=== PATIENT | male | born 1955 | race Caucasian/White ===

== ENCOUNTER → 2016-10-28 | Outpatient (CLI) | payer MEDICARE, MEDICAID | LOC: BHSO 14:35 | DX: F20.89 Other schizophrenia (principal) | CPT/HCPCS: 90791-AI ==

== ENCOUNTER → 2016-11-12 | Outpatient (CLI) | payer MEDICARE, MEDICAID | LOC: BHSO 09:11 | DX: Z01.89 Encounter for other specified special examinations (principal) ==

== ENCOUNTER → 2016-12-12 | Outpatient (CLI) | payer MEDICARE, MEDICAID | LOC: BHSO 09:59 | DX: F20.9 Schizophrenia, unspecified (principal) ==

== ENCOUNTER → 2017-01-10 | Outpatient (CLI) | payer MEDICARE, MEDICAID | LOC: BHSO 11:14 | DX: F20.9 Schizophrenia, unspecified (principal) ==

== ENCOUNTER → 2017-02-07 | Outpatient (CLI) | payer MEDICARE, MEDICAID | LOC: BHSO 10:53 | DX: F20.9 Schizophrenia, unspecified (principal) ==

== ENCOUNTER → 2017-03-07 | Outpatient (CLI) | payer MEDICARE, MEDICAID | LOC: BHSO 10:00 | DX: F20.9 Schizophrenia, unspecified (principal) ==

== ENCOUNTER → 2017-04-04 | Outpatient (CLI) | payer MEDICARE, MEDICAID | LOC: BHSO 10:01 | DX: Z01.89 Encounter for other specified special examinations (principal) ==

== ENCOUNTER → 2017-04-11 | Outpatient (CLI) | payer MEDICARE, MEDICAID | LOC: BHSO 09:59 | DX: F20.9 Schizophrenia, unspecified (principal) ==

== ENCOUNTER → 2017-05-02 | Outpatient (CLI) | payer MEDICARE, MEDICAID | LOC: BHSO 09:52 | DX: F20.9 Schizophrenia, unspecified (principal) ==

== ENCOUNTER → 2017-05-30 | Outpatient (CLI) | payer MEDICARE, MEDICAID | LOC: BHSO 10:00 | DX: F20.9 Schizophrenia, unspecified (principal) ==

== ENCOUNTER → 2017-06-26 | Outpatient (CLI) | payer MEDICARE, MEDICAID | LOC: BHSO 10:36 | DX: F20.9 Schizophrenia, unspecified (principal) ==

== ENCOUNTER → 2017-07-24 | Outpatient (CLI) | payer MEDICARE, MEDICAID | LOC: BHSO 10:44 | DX: F20.9 Schizophrenia, unspecified (principal) ==

== ENCOUNTER → 2017-08-08 | Outpatient (CLI) | payer MEDICARE, MEDICAID | LOC: BHSO 09:56 | DX: F20.9 Schizophrenia, unspecified (principal) | CPT/HCPCS: G0463 ==

== ENCOUNTER → 2017-08-21 | Outpatient (CLI) | payer MEDICARE, MEDICAID | LOC: BHSO 10:48 | DX: F20.9 Schizophrenia, unspecified (principal) ==

== ENCOUNTER → 2017-09-18 | Outpatient (CLI) | payer MEDICARE, MEDICAID | LOC: BHSO 11:34 | DX: F20.9 Schizophrenia, unspecified (principal) ==

== ENCOUNTER → 2017-10-17 | Outpatient (CLI) | payer MEDICARE, MEDICAID | LOC: BHSO 10:01 | DX: F20.9 Schizophrenia, unspecified (principal) ==

== ENCOUNTER → 2017-11-14 | Outpatient (CLI) | payer MEDICARE, MEDICAID | LOC: BHSO 10:04 | DX: F20.9 Schizophrenia, unspecified (principal) ==

== ENCOUNTER → 2017-12-12 | Outpatient (CLI) | payer MEDICARE, MEDICAID | LOC: BHSO 09:25 | DX: F20.9 Schizophrenia, unspecified (principal) ==

== ENCOUNTER → 2018-01-09 | Outpatient (CLI) | payer MEDICARE, MEDICAID | LOC: BHSO 09:51 | DX: F20.9 Schizophrenia, unspecified (principal) ==

== ENCOUNTER → 2018-02-06 | Outpatient (CLI) | payer MEDICARE, MEDICAID | LOC: BHSO 09:45 | DX: F20.9 Schizophrenia, unspecified (principal) ==

== ENCOUNTER → 2018-03-06 | Outpatient (CLI) | payer MEDICARE, MEDICAID | LOC: BHSO 10:05 | DX: F25.0 Schizoaffective disorder, bipolar type (principal) | CPT/HCPCS: G0463 ==

== ENCOUNTER → 2018-04-03 | Outpatient (CLI) | payer MEDICARE, MEDICAID | LOC: BHSO 10:53 | DX: F20.9 Schizophrenia, unspecified (principal) ==

== ENCOUNTER 2018-04-23 05:21 | Day surgery (SDC) | payer MEDICARE, MEDICAID ==
[~2018-04-23] VITALS: Ht 170.2 cm; Wt 110.0 kg
[2018-04-23] VITALS (14 sets, daily range): BP systolic 117–155; BP diastolic 59–91; PULSE 80–105; TEMP 97.6–98.3
[2018-04-23] MEDS ORDERED: INVEGA SUSTENN117 MG IM (06:03)
[2018-04-23] MEDS ORDERED: PRINZIDE 25 MG-1 TAB PO (06:04)
[2018-04-23] MEDS ORDERED: LIPITOR20 MG PO (06:04)
[2018-04-23] MEDS ORDERED: COGENTIN 1MG1 MG/TAB PO (06:05)
[2018-04-23] MEDS ORDERED: MOBIC15 MG PO (06:05)
[2018-04-23] MEDS ORDERED: BELSOMRA5 MG PO (06:06)
[2018-04-23] MEDS ORDERED: FLOMAX 0.40.4 MG/CAP PO (06:06)
[2018-04-23] MEDS ORDERED: DESYREL DIVIDO150 M1 PO (06:06)
[2018-04-24 03:33] VITALS: BP 121/60; PULSE 75; TEMP 98.3
[2018-04-24 08:36] VITALS: BP 135/68; PULSE 71; TEMP 97.4
[2018-04-24 13:00] VITALS: BP 151/77; PULSE 68; TEMP 97.3
[2018-04-24 15:46] VITALS: BP 146/66; PULSE 73; TEMP 97.5
[2018-04-24 19:51] VITALS: BP 158/76; PULSE 79; TEMP 98.7
[2018-04-25] VITALS (7 sets, daily range): BP systolic 107–161; BP diastolic 62–85; PULSE 65–81; TEMP 97.4–98.3
[2018-04-26 04:40] VITALS: BP 129/56; PULSE 73; TEMP 98.2
[2018-04-26 07:11] VITALS: BP 158/72; PULSE 81; TEMP 97.9
[2018-04-26 11:23] VITALS: BP 155/73; PULSE 87; TEMP 97.8
[2018-04-26 15:55] VITALS: BP 152/87; PULSE 82; TEMP 98.2
== END 2018-04-26 19:25 | disposition home or self-care (01) ==
LOC: SDCO 05:21 → SURG 09:44 → SDCO 04-25 09:44
DX: N40.1 Benign prostatic hyperplasia with lower urinary tract symptoms (principal); R35.1 Nocturia; N13.8 Other obstructive and reflux uropathy; N41.1 Chronic prostatitis; I10 Essential (primary) hypertension; N31.2 Flaccid neuropathic bladder, not elsewhere classified; F32.9 Major depressive disorder, single episode, unspecified; E78.5 Hyperlipidemia, unspecified; F20.9 Schizophrenia, unspecified; Z79.899 Other long term (current) drug therapy
CPT/HCPCS: OP; J1100; J2250; J2405; J2704; J3010; J7120

== ENCOUNTER → 2018-05-01 | Outpatient (CLI) | payer MEDICARE, MEDICAID ==
[~2018-05-01] MED LIST: BELSOMRA5 MG PO; COGENTIN 1MG1 MG/TAB PO; DESYREL DIVIDO150 M1 PO; FLOMAX 0.40.4 MG/CAP PO; INVEGA SUSTENN117 MG IM; LIPITOR20 MG PO; MOBIC15 MG PO; PRINZIDE 25 MG-1 TAB PO
== END ==
LOC: BHSO 09:54
DX: F20.9 Schizophrenia, unspecified (principal)

== ENCOUNTER → 2018-05-29 | Outpatient (CLI) | payer MEDICARE, MEDICAID | LOC: BHSO 10:10 | DX: F20.9 Schizophrenia, unspecified (principal) ==

== ENCOUNTER → 2018-06-26 | Outpatient (CLI) | payer MEDICARE, MEDICAID | LOC: BHSO 10:50 | DX: F20.9 Schizophrenia, unspecified (principal) ==

== ENCOUNTER → 2018-07-24 | Outpatient (CLI) | payer MEDICARE, MEDICAID | LOC: BHSO 10:56 | DX: F20.9 Schizophrenia, unspecified (principal) ==

== ENCOUNTER → 2018-08-21 | Outpatient (CLI) | payer MEDICARE, MEDICAID | LOC: BHSO 14:35 | DX: F20.9 Schizophrenia, unspecified (principal) ==

== ENCOUNTER → 2018-09-04 | Outpatient (CLI) | payer MEDICARE, MEDICAID | LOC: BHSO 09:37 | DX: F20.9 Schizophrenia, unspecified (principal) | CPT/HCPCS: G0463 ==

== ENCOUNTER → 2018-10-22 | Outpatient (CLI) | payer MEDICARE, MEDICAID | LOC: BHSO 09:43 | DX: F20.9 Schizophrenia, unspecified (principal) ==

== ENCOUNTER → 2018-11-25 | Outpatient (CLI) | payer MEDICARE, MEDICAID | LOC: BHSO 09:43 | DX: F20.9 Schizophrenia, unspecified (principal) ==

== ENCOUNTER → 2018-12-24 | Outpatient (CLI) | payer MEDICARE, MEDICAID | LOC: BHSO 09:52 | DX: F20.9 Schizophrenia, unspecified (principal) ==

== ENCOUNTER → 2019-01-20 | Outpatient (CLI) | payer MEDICARE, MEDICAID | LOC: BHSO 09:57 | DX: F20.9 Schizophrenia, unspecified (principal) ==

== ENCOUNTER → 2019-02-15 | Outpatient (CLI) | payer MEDICARE, MEDICAID | LOC: BHSO 10:18 | DX: F20.9 Schizophrenia, unspecified (principal) | CPT/HCPCS: G0463 ==

== ENCOUNTER → 2019-02-18 | Outpatient (CLI) | payer MEDICARE, MEDICAID | LOC: BHSO 13:41 | DX: F20.9 Schizophrenia, unspecified (principal) ==

== ENCOUNTER → 2019-03-04 | Outpatient (CLI) | payer MEDICARE, MEDICAID | LOC: COL.RAD 03-02 13:30 | DX: N17.9 Acute kidney failure, unspecified (principal) ==

== ENCOUNTER → 2019-03-18 | Outpatient (CLI) | payer MEDICARE, MEDICAID | LOC: BHSO 12:03 | DX: F20.9 Schizophrenia, unspecified (principal) ==

== ENCOUNTER → 2019-04-15 | Outpatient (CLI) | payer MEDICARE, MEDICAID | LOC: BHSO 14:32 | DX: F20.9 Schizophrenia, unspecified (principal) ==

== ENCOUNTER → 2019-05-14 | Outpatient (CLI) | payer MEDICARE, MEDICAID | LOC: BHSO 10:50 | DX: F20.9 Schizophrenia, unspecified (principal) ==

== ENCOUNTER → 2019-06-11 | Outpatient (CLI) | payer MEDICARE, MEDICAID ==
[~2019-06-11] MED LIST changes: +PRINIVIL10 MG PO
== END ==
LOC: BHSO 10:22
DX: F20.9 Schizophrenia, unspecified (principal)

== ENCOUNTER 2019-06-15 21:44 | Inpatient (IN) | payer MEDICARE, MEDICAID ==
[~2019-06-15] VITALS: Ht 170.2 cm; Wt 107.6 kg
[~2019-06-15 21:44] MED LIST changes: -PRINIVIL10 MG PO
[2019-06-15 22:27] LABS: BASO % 0.2 % (0.0-2.0); EOS % 0.1 % (0-4.0); GRAN % 85.3 % (42.2-75.2); HEMATOCRIT 41.4 % (42.0-52.0); LYMPH # 0.7 (1.2-3.4); LYMPH % 5.2 % (20.0-51.0); MEAN CELL VOLUME 92 fl (80.0-100.0); MEAN CORPUSCULAR HEMOGLOBIN 31 pg (27.0-31.0); MEAN CORPUSCULAR HGB CONC 34 g/dl (33.0-37.0); MEAN PLATELET VOLUME 10.7 fl (7.4-10.4); MONO # 1.3 (0.1-0.6); MONO % 8.9 % (1.7-9.3); PLATELET COUNT 194 K/mm3 (130-400); RED BLOOD COUNT 4.48 M/mm3 (4.20-5.60); REDCELL DISTRIBUTION WIDTH-CV 12.3 % (11.5-14.5)
[2019-06-15 22:37] LABS: COLLECTION METHOD CATHETER
[2019-06-15 22:46] LABS: ALBUMIN 4.3 gm/dL (3.5-5.0); BILIRUBIN,TOTAL 1.6 mg/dL (0.0-1.0); CALCIUM 10.1 mg/dL (8.4-10.2); CREATININE, serum 1.21 (0.66-1.25); TOTAL PROTEIN 7.7 gm/dL (6.4-8.2)
[2019-06-15 22:49] LABS: MUCOUS Present /lpf; PH 6 (5-8); SQUAMOUS EPITHELIAL None Seen /hpf; URINE APPEARANCE Hazy; URINE BACTERIA Rare /hpf; URINE BILIRUBIN Negative (NEGATIVE); URINE BLOOD 2+ (NEGATIVE); URINE COLOR Yellow; URINE GLUCOSE 1+ (NEGATIVE); URINE KETONE 1+ (NEGATIVE); URINE LEUKOCYTE ESTERASE 1+ (NEGATIVE); URINE NITRATE Positive (NEGATIVE); URINE PROTEIN(semi-quant) 2+ (NEGATIVE)
[2019-06-15] MEDS ORDERED: PRINIVIL10 MG PO (22:49)
[2019-06-15 22:57] LABS: C-REACTIVE PROTEIN 13.5 mg/dL (0.0-0.9)
[2019-06-16] VITALS (7 sets, daily range): BP systolic 122–163; BP diastolic 51–96; PULSE 88–105; TEMP 98.2–101.5
--- NOTE | 2019-06-16 00:12 | NUR ---
Pt arrived to room 353, transferred per stretcher by ED staff. Family at bedside. Pt/family oriented to room, unit policies et current POC. Questions invited et answered, both verbalize understanding. Pt denies needs at this time. Call light in reach, bed alarm on. Will continue c admit process.
--- NOTE | 2019-06-16 09:31 | NUR ---
PHIL met with the patient and the patient's brother, Arun (ph#[phone]), to discuss discharge plan. The patient lives alone in [place] at the [facility]. Arun reports that he also lives in [place]. Arun reports that the patient needs assistance with bathing and that he does not have any DME. He receives home health services from [facility] for wound care. Arun states that they come out M/W/F. PHIL contacted and confirmed services from [facility] at [facility]. PHIL faxed updates to [facility]. The patient also receives private duty services from [facility] for housekeeping and they help him with bathing. Arun states that he will also assist the patient with bathing. The patient's PCP is Dr. Scottie Toribio and he receives his medications at [facility]. Arun reports no difficulties obtaining his meds. The patient does not have advanced directives in EMR, but Arun states that the patient does have them completed and that he provided a copy to the RN in the ED. He states that he is the patient's DPOA-HC. PHIL contacted Medical Records. Medical Records reports that they have not yet received his ED packet to scan into EMR. PHIL to inform Arun of this. The patient's brother reports that the plan is for the patient to return back home and resume home health services from [facility] and private duty services from [facility] upon discharge. PHIL to continue to follow.
--- NOTE | 2019-06-16 15:10 | NUR ---
The patient's brother, Arun, provided SW a copy of the patient's DPOA-HC and DPOA for Finances. SW placed in the patient's chart. The patient's DPOA-HC is his brother, Arun.
--- NOTE | 2019-06-16 18:28 | NUR ---
Pt resting in bed. A&O x4. VSS. Left ackerman abrasion assessed and dressing was removed. Patient denies pain. Lim dependent drainage clear yellow urine, no kinks or loops in tubing. IV CD&I. Pt expresses no further needs. States he is comfortable in bed. Call light in reach.
--- NOTE | 2019-06-16 20:00 | NUR ---
Assessment complete. Pt laying in bed with brother at bedside. Denies any pain or discomfort at this time. Alert and oriented. Vasquez catheter in place, draining clear yellow urine, stat lock in place, vasquez bag placed below bladder at foot of bed. IV to LAC patent with fluids infusing. Tele monitor in place, leads checked. Noted diarrhea x1, changed pt with assistance of aide. Pt able to make needs known. Call light within reach.
[2019-06-17] VITALS (7 sets, daily range): BP systolic 126–166; BP diastolic 58–73; PULSE 83–98; TEMP 98.2–99.5
--- NOTE | 2019-06-17 05:12 | NUR ---
Pt slept throught the night. Had x3 loose stools. Kanika MANAGER PROGRAMMING notified, stool sample obtained for GI panel. GI panel negative. Pt had temp of 101.5 at 2340, PRN tylenol given. Temp resolved 99.5, 98.3. Pt denied any abdominal pain or cramping. Needs met. Call light within reach.
--- NOTE | 2019-06-17 07:08 | NUR ---
Report given to FAYE Castanon.
[2019-06-17 08:25] LABS: BASO % 0.3 % (0.0-2.0); EOS # 0.3 (0.0-0.7); EOS % 3.3 % (0-4.0); GRAN # 5.3 (1.4-6.5); GRAN % 70.9 % (42.2-75.2); HEMATOCRIT 37.1 % (42.0-52.0); HEMOGLOBIN 12.2 g/dl (13.5-18.0); LYMPH % 13.7 % (20.0-51.0); MEAN CELL VOLUME 94 fl (80.0-100.0); MEAN CORPUSCULAR HEMOGLOBIN 31 pg (27.0-31.0); MEAN CORPUSCULAR HGB CONC 33 g/dl (33.0-37.0); MONO # 0.9 (0.1-0.6); MONO % 11.5 % (1.7-9.3); PLATELET COUNT 169 K/mm3 (130-400); RED BLOOD COUNT 3.97 M/mm3 (4.20-5.60); REDCELL DISTRIBUTION WIDTH-CV 12.5 % (11.5-14.5)
[2019-06-17 08:44] LABS: ALBUMIN 3.1 gm/dL (3.5-5.0); BILIRUBIN,TOTAL 0.5 mg/dL (0.0-1.0); CALCIUM 9.2 mg/dL (8.4-10.2); CREATININE, serum 0.92 (0.66-1.25); POTASSIUM 3.9 mmol/L (3.4-5.0)
--- NOTE | 2019-06-17 08:58 | NUR ---
Pt assessment completed. Pt doing well. Alert and oriented with VSS. NS running in L AC. CD&I IV site. Denies pain at this time. Lim cath in place, draining tea-colored urine. No blood noted. Call light within reach, will continue to monitor
--- NOTE | 2019-06-17 10:31 | NUR ---
Lim catheter DC's per order. 10cc removed from balloon. Patient tolerated well. Instructed to push call light when he needs to void. Voiced understanding. Call light within reach, will continue to monitor
--- NOTE | 2019-06-17 11:57 | NUR ---
Pt doing ok. Resting in bed. Denies pain and has no concerns at this time. Call light within reach, will continue to monitor
--- NOTE | 2019-06-17 14:19 | NUR ---
Pt in room eating lunch. Doing well. Still has not voided. Denies pain or other concerns at this time. Call light within reach, will continue to monitor
--- NOTE | 2019-06-17 14:59 | NUR ---
Pt was able to ambulate x1 assist to bathroom and voided clear, yellow urine. Patient also had medium brown formed bowel movement.
--- NOTE | 2019-06-17 16:22 | NUR ---
Pt ambulated to bathroom and voided clear yellow urine. about 400ml.
--- NOTE | 2019-06-17 19:49 | NUR ---
Patient ambulated to with standby assist. Voided small amount. Lim was dc'ed this morning, no post void residual done today. Bladder scan after 1900 void showed 400ml in bladder. Will notify KARMA Boudreaux for further orders. Will continue to monitor.
--- NOTE | 2019-06-17 20:30 | NUR ---
Shift assessment complete. Patient in bed, awake. Denies pain. Left AC IV flushed with NS and IVF infusing at ordered rate. Incontinent of urine in bed, ambulated to BR and urinated again. PVR BS showed 300ml. Per Kanika, VP & GENERAL COUNSEL, RN to call Dr. De Leon (urology) for further instructions. Patient states he feels like he has emptied his bladder. Denies further needs at this time. Will continue to monitor.
--- NOTE | 2019-06-17 21:06 | NUR ---
Dr. De Leon notified of 300-400ml on PVR BS. Informed by Dr. De Leon that d/t pt's history, he will never completely empty his bladder. Therefore, he is ok with the amount of urine showing on PVR BS. Updated KARMA Boudreaux. Updated patient. He is agreeable to plan. Per Dr. De Leon, if pt is febrile, we need to notify him. Will continue to monitor.
[2019-06-18 03:39] VITALS: BP 142/75; PULSE 80; TEMP 97.2
--- NOTE | 2019-06-18 04:30 | NUR ---
Patient ambulated to with standby assist x1. Incontinent of urine, and voided in toilet. Angelita-care provided with cleansing cloths, linens changed, brief changed, and gown changed. Patient denies pain. Denies further needs at this time. Will continue to monitor.
[2019-06-18 07:15] LABS: BASO % 0.6 % (0.0-2.0); EOS # 0.5 (0.0-0.7); EOS % 6.7 % (0-4.0); GRAN # 4.8 (1.4-6.5); GRAN % 69.3 % (42.2-75.2); HEMOGLOBIN 12.3 g/dl (13.5-18.0); LYMPH # 0.9 (1.2-3.4); LYMPH % 13.5 % (20.0-51.0); MEAN CELL VOLUME 92 fl (80.0-100.0); MEAN CORPUSCULAR HEMOGLOBIN 31 pg (27.0-31.0); MEAN CORPUSCULAR HGB CONC 33 g/dl (33.0-37.0); MEAN PLATELET VOLUME 11.8 fl (7.4-10.4); MONO # 0.7 (0.1-0.6); MONO % 9.6 % (1.7-9.3); PLATELET COUNT 188 K/mm3 (130-400); RED BLOOD COUNT 4.01 M/mm3 (4.20-5.60); REDCELL DISTRIBUTION WIDTH-CV 12.3 % (11.5-14.5)
[2019-06-18 07:18] LABS: HEMATOCRIT 36.9 % (42.0-52.0)
[2019-06-18 07:27] VITALS: BP 157/85; PULSE 85; TEMP 99
[2019-06-18 07:27] LABS: BILIRUBIN,TOTAL 0.2 mg/dL (0.0-1.0); CALCIUM 9.1 mg/dL (8.4-10.2); CREATININE, serum 0.78 (0.66-1.25); POTASSIUM 3.8 mmol/L (3.4-5.0); TOTAL PROTEIN 5.9 gm/dL (6.4-8.2)
--- NOTE | 2019-06-18 08:31 | NUR ---
Pt is awake and A/Ox4. He denies pain or discomfort. IVF are infusing into left AC without difficulty. Pt does have insp/exp. wheeze. He remains on room air. Pt reports having frequent incontient episodes of urine overnight. Pt denies any other needs.
[2019-06-18] MEDS ORDERED: AMOXICILLIN 50500 MG PO (10:51)
--- NOTE | 2019-06-18 13:46 | NUR ---
The patient is to discharge back home today, 06/18, with home health services for correction/PT/OT through [facility]. PHIL contacted and faxed the patient's discharge orders to [facility]. PHIL also presented and explained the IM form to the patient's brother, Arun. Arun verbalized understanding, signed, and he was provided a copy. No additional needs at this time.
--- NOTE | 2019-06-18 14:03 | NUR ---
Pt was discharged home from hospital with home health. All discharge paperwork and instructions were reviewed with the pt and his brother, Arun. Saline lock removed, catheter tip intact. New prescription was sent electronically to [facility]. Pt was escorted out of facility by staff.
== END 2019-06-18 14:04 | disposition home health service (06) | DRG 872 ==
LOC: COL.ER 21:44 → MEDICAL 22:56
PROVIDERS: Emergency Medicine; Nurse Practitioner Family; ADMIT Hospitalist
DX: A41.9 Sepsis, unspecified organism (principal); N39.0 Urinary tract infection, site not specified; G93.49 Other encephalopathy; F32.9 Major depressive disorder, single episode, unspecified; F25.9 Schizoaffective disorder, unspecified; E78.5 Hyperlipidemia, unspecified; R73.9 Hyperglycemia, unspecified; I10 Essential (primary) hypertension; Z98.49 Cataract extraction status, unspecified eye; Z88.2 Allergy status to sulfonamides; Z90.79 Acquired absence of other genital organ(s); Z90.49 Acquired absence of other specified parts of digestive tract
CPT/HCPCS: 99223-AI; 99232-AI; A4216; J0696; J1650; J2270; J7030

== ENCOUNTER → 2019-07-09 | Outpatient (CLI) | payer MEDICARE, MEDICAID ==
[~2019-07-09] MED LIST changes: +AMOXICILLIN 50500 MG PO; +PRINIVIL10 MG PO
== END ==
LOC: BHSO 10:32
DX: F20.9 Schizophrenia, unspecified (principal)

== ENCOUNTER → 2019-08-05 | Outpatient (CLI) | payer MEDICARE, MEDICAID | LOC: BHSO 15:05 | DX: F20.9 Schizophrenia, unspecified (principal) ==

== ENCOUNTER → 2019-08-10 | Outpatient (CLI) | payer MEDICARE, MEDICAID | LOC: BHSO 11:34 | DX: F20.9 Schizophrenia, unspecified (principal) | CPT/HCPCS: G0463 ==

== ENCOUNTER → 2019-09-03 | Outpatient (CLI) | payer MEDICARE, MEDICAID | LOC: BHSO 09:34 | DX: F20.9 Schizophrenia, unspecified (principal) ==

== ENCOUNTER → 2019-09-30 | Outpatient (CLI) | payer MEDICARE, MEDICAID | LOC: BHSO 09:40 | DX: F20.9 Schizophrenia, unspecified (principal) ==

== ENCOUNTER → 2019-10-28 | Outpatient (CLI) | payer MEDICARE, MEDICAID | LOC: BHSO 09:48 | DX: F20.9 Schizophrenia, unspecified (principal) | CPT/HCPCS: G0463 ==

== ENCOUNTER → 2019-11-25 | Outpatient (CLI) | payer MEDICARE, MEDICAID | LOC: BHSO 10:48 | DX: F20.9 Schizophrenia, unspecified (principal) ==

== ENCOUNTER → 2019-12-23 | Outpatient (CLI) | payer MEDICARE, MEDICAID | LOC: BHSO 09:35 | DX: F20.9 Schizophrenia, unspecified (principal) ==

== ENCOUNTER → 2020-01-20 | Outpatient (CLI) | payer MEDICARE, MEDICAID | LOC: BHSO 10:02 | DX: F20.9 Schizophrenia, unspecified (principal) ==

== ENCOUNTER → 2020-02-02 | Outpatient (CLI) | payer MEDICARE, MEDICAID | LOC: BHSO 10:35 | DX: F20.9 Schizophrenia, unspecified (principal) | CPT/HCPCS: G0463 ==

== ENCOUNTER → 2020-02-17 | Outpatient (CLI) | payer MEDICARE, MEDICAID | LOC: BHSO 10:04 | DX: F20.9 Schizophrenia, unspecified (principal) ==

== ENCOUNTER → 2020-03-16 | Outpatient (CLI) | payer MEDICARE, MEDICAID | LOC: BHSO 09:09 | DX: F20.9 Schizophrenia, unspecified (principal) ==

== ENCOUNTER → 2020-04-10 | Outpatient (CLI) | payer MEDICARE, MEDICAID | LOC: BHSO 09:00 | DX: F20.9 Schizophrenia, unspecified (principal) ==

== ENCOUNTER → 2020-05-03 | Outpatient (CLI) | payer MEDICARE, MEDICAID | LOC: BHSO 10:20 | DX: F20.9 Schizophrenia, unspecified (principal) | CPT/HCPCS: G0463 ==

== ENCOUNTER → 2020-05-11 | Outpatient (CLI) | payer MEDICARE, MEDICAID | LOC: BHSO 10:01 | DX: F20.9 Schizophrenia, unspecified (principal) ==

== ENCOUNTER 2021-05-14 16:04 | Emergency (ER) | payer MEDICARE, MEDICAID ==
[~2021-05-14] VITALS: Ht 170.2 cm; Wt 115.5 kg
[2021-05-14 19:16] LABS: BASO % 0.2 % (0.0-2.0); EOS % 0.1 % (0-4.0); GRAN # 14.1 K/mm3 (1.4-6.5); GRAN % 85.7 % (42.2-75.2); HEMATOCRIT 38.3 % (42.0-52.0); LYMPH # 0.9 K/mm3 (1.2-3.4); LYMPH % 5.7 % (20.0-51.0); MEAN CELL VOLUME 93 fl (80.0-100.0); MEAN CORPUSCULAR HEMOGLOBIN 32 pg (27.0-31.0); MEAN CORPUSCULAR HGB CONC 34 g/dl (33.0-37.0); MEAN PLATELET VOLUME 10.7 fl (7.4-10.4); MONO # 1.3 K/mm3 (0.1-0.6); MONO % 7.9 % (1.7-9.3); PLATELET COUNT 185 K/mm3 (130-400); RED BLOOD COUNT 4.12 M/mm3 (4.20-5.60); REDCELL DISTRIBUTION WIDTH-CV 13.3 % (11.5-14.5)
[2021-05-14 19:37] LABS: ALBUMIN 3.1 gm/dL (3.4-4.8); BILIRUBIN,TOTAL 0.9 mg/dL (0.2-1.2); CALCIUM 9.8 mg/dL (8.4-10.2); CREATININE, serum 1.02 mg/dL (0.72-1.25); POTASSIUM 3.8 mmol/L (3.5-4.5); TOTAL PROTEIN 6.5 gm/dL (6.2-8.1)
[2021-05-14 20:23] LABS: COLLECTION METHOD CATHETER
[2021-05-14 20:29] LABS: MUCOUS Present /lpf; PH 5 (5-8); SQUAMOUS EPITHELIAL None Seen /hpf; URINE APPEARANCE Cloudy; URINE BACTERIA None Seen /hpf; URINE BILIRUBIN Negative (NEGATIVE); URINE BLOOD 2+ (NEGATIVE); URINE COLOR Amber; URINE GLUCOSE 1+ (NEGATIVE); URINE KETONE Negative (NEGATIVE); URINE LEUKOCYTE ESTERASE Trace (NEGATIVE); URINE NITRATE Negative (NEGATIVE); URINE PROTEIN(semi-quant) 2+ (NEGATIVE); URINE RBC 20-50 /hpf; URINE UROBILINOGEN Negative (NEGATIVE)
[2021-05-14] MEDS ORDERED: CEFTIN500 MG PO (20:41)
[2021-05-14 21:28] VITALS: BP 170/83; PULSE 89; TEMP 98.9
== END 2021-05-14 21:28 | disposition home or self-care (01) ==
LOC: COL.ER 16:04
PROVIDERS: Physician Assistant
DX: N39.0 Urinary tract infection, site not specified (principal); I10 Essential (primary) hypertension; F32.A Depression, unspecified; F20.0 Paranoid schizophrenia; E78.5 Hyperlipidemia, unspecified; Z88.2 Allergy status to sulfonamides; Z79.899 Other long term (current) drug therapy
CPT/HCPCS: J0696; J7030